=== PATIENT | female | born 1950 | race Caucasian/White ===

== ENCOUNTER → 2016-11-13 | Outpatient (CLI) | payer OTHER ==
[~2016-11-13] MED LIST: ATEN50TA21 PO; ATOR10TA82 PO; CYM/30 PO; GLC/500 PO; HYG25 PO; IBUP-103 PO; LYSI500C2 PO; POTA20TA16 PO; TRAM-10 PO; TRAZ50TA35 PO
[2016-11-13 13:46] VITALS: BP 128/81; PULSE 68; TEMP 36.7; O2SAT 97
--- NOTE | 2016-11-13 16:13 | Radiation Oncology Follow-Up ---
Radiation Oncology Follow-Up Date of Visit Nov 13, 2016. Reason For Visit Annual follow-up Radiation Completion Date IMRT and HDR x 3 for endometrial cancer 05/01/14 Diagnosis (1) Endometrial carcinoma Status: Resolved Onset Date: 10/10/2013 Location: endometrium Histology Subtype: endometrioid Stage: ll Permanent Comment: Postmenopausal vaginal bleeding Status post endometrial biopsy showing atrophic endometrium Persistent bleeding, status post D&C and diagnostic laparoscopic evaluation and salpingectomy on the left 10/10/2013 Finding of adenocarcinoma of endometrium, FIGO grade 1 Status post robotic-assisted total abdominal hysterectomy, bilateral salpingo- oophorectomy showing endometrioid adenocarcinoma PT2c pN0M0 FIGO grade 1 Status post completion of radiation therapy utilizing IMR T, as well as 3 high- dose treatments. Received 5700 cGy, completed 05/01/2014 Last Edited By: Perri Miguel on Oct 30, 2015 11:15 Interim History She's been doing well over this past year. She denies any change in urination or bowel habits. She has not a problems with a vaginal discharge or bleeding. She denies any abdominal pain. She is currently not being followed by gynecology. She has been using the vaginal dilator. She does have some difficulty and notices that this does not insert as far. She occasionally has seen blood on the dilator. This occurs if she tries to insert this further. She does not use the dilator on a regular basis. She does have chronic back pain. She was seen and started on Cymbalta. She feels this is greatly helping her back pain. Allergies Coded Allergies: No Known Allergies (Unverified , 05/31/15) Uncoded Allergies: NKA (Allergy, Unknown, 06/21/15) Home Medications Scheduled Atenolol & Chlorthalidone (Tenoretic 50MG/25MG), 0.5 TAB PO QAM Duloxetine HCl (Cymbalta), 1 CAP PO DAILY Potassium Ext Rel (Klor-Con), 10 MEQ PO QAM Trazodone Hcl (Trazodone), 50 MG PO HS Scheduled PRN Lysine (Lysine), 500 MG PO DAILY PRN for UNDECIDED Tramadol (Ultram), 1 TAB PO BID PRN for Pain Review of Systems Gastrointestinal: Symptoms: Constipation GI Comments: Constipation - manageable at home;Urgency w/BMs; Oral: Symptoms: No Problems Respiratory: Symptoms: WNL Urinary: Symptoms: WNL Comments: Stress incontinence that was present before RT, sl. worse; Skin: Symptoms: No Problems Physical Exam Vital Signs Date Time Temp Pulse Resp B/P Pulse Ox O2 Delivery O2 Flow Rate FiO2 11/13/16 13:46 36.7 68 20 128/81 97 Fatigue: None General Appearance: no apparent distress Eyes: normal inspection, EOMI ENT: normal ENT inspection, hearing grossly normal Respiratory/Chest: lungs clear, no respiratory distress, no accessory muscle use Cardiovascular: regular rate, rhythm, no gallop, no murmur Abdomen: non tender, soft, no organomegaly Genitourinary - Female: Normal external genitalia. Speculum examination reveals vaginal foreshortening. There are no visible lesions of the vagina. There is no discharge or bleeding. Pap smear was taken. Bimanual examination reveals no palpable masses and no tenderness. There is mild telangiectasia. Anal / Rectum: Normal sphincter tone. No rectal masses no rectal bleeding. Extremities: no pedal edema Neurologic/Psychiatric: no motor/sensory deficits, alert, normal mood/affect Skin: warm/dry Assessment & Plan Plan: Patient with notified as to results of her Pap smear. Continue regular follow-up with Dr. Lazo. She is not currently following with gynecology. She was instructed to use the vaginal dilator once a week. I did instruct her on the insertion of the dilator. She has foreshortening and this can only be inserted approximately 7 cm. She'll no longer try to insert this any further than 7 cm. We asked to return to our office in 1 year. She may call if she has any questions or concerns in the interim. Total Time In Follow-Up I spent 25 minutes speaking to the patient and performing examination. I spent 15 minutes reviewing information in completing this note. Copy To Paul Lazo M.D.
--- NOTE | 2016-11-24 10:00 | EDITING REQUIRED CODING QUERY ---
SUPPORTING DIAGNOSIS NEEDED A supporting diagnosis is required for the test/procedure performed on this patient in order for us to be reimbursed by the patient's insurance. Please provide a supporting diagnosis for the following test/procedure listed below next to the test name along with your signature. *If there is no additional diagnosis for this patient that would support the following test/procedure please document that below next to the test/procedure. Test(s)/Procedure(s) that require a supporting diagnosis: * SCREENING PAP SMEAR DIAGNOSIS: * DOS: 11/13/16 Provider Signature: Date: Thank you Deysi Nielsen Health Information Management For questions please call [phone]
--- NOTE | 2016-11-24 10:07 | EDITING REQUIRED CODING QUERY ---
SUPPORTING DIAGNOSIS NEEDED A supporting diagnosis is required for the test/procedure performed on this patient in order for us to be reimbursed by the patient's insurance. Please provide a supporting diagnosis for the following test/procedure listed below next to the test name along with your signature. *If there is no additional diagnosis for this patient that would support the following test/procedure please document that below next to the test/procedure. Test(s)/Procedure(s) that require a supporting diagnosis: * SCREENING PAP SMEAR DIAGNOSIS: C54.1 * DOS: 11/13/16 Provider Signature: ____Perri Miguel PA-C Date: _11/25/2016___ Thank you Deysi Nielsen Health Information Management For questions please call [phone]
== END | disposition home or self-care (01) ==
LOC: C.ONC 13:32
PROVIDERS: ATTEND Physician Assistant Medical
DX: Z08 Encounter for follow-up examination after completed treatment for malignant neoplasm (principal); Z92.3 Personal history of irradiation; Z85.42 Personal history of malignant neoplasm of other parts of uterus; C54.1 Malignant neoplasm of endometrium

== ENCOUNTER → 2017-05-11 | Outpatient (CLI) | payer OTHER ==
[~2017-05-11] MED LIST changes: -ATOR10TA82 PO; -GLC/500 PO; -HYG25 PO; -IBUP-103 PO
[2017-05-11 11:02] LABS: BASO % 0.4 %; BASO ABS # 0.03 K/uL (0-0.2); COMPLETE YES; EOS % 2.3 %; HEMATOCRIT 42.9 % (37-47); IG% 0.1 %; LYMPH % 14.7 %; LYMPH ABS # 1.01 K/uL (1.2-3.4); MEAN CELL VOLUME 92.7 fL (80-100); MEAN CORPUSCULAR HEMOGLOBIN 30.2 pg (25-34); MEAN CORPUSCULAR HGB CONC 32.6 g/dl (32-36); MEAN PLATELET VOLUME 10.5 fL (7.4-10.4); MONO % 8.3 %; NEUT % 74.2 %; PLATELET COUNT 307 K/uL (130-400); RED BLOOD COUNT 4.63 M/uL (4.2-5.4); WHITE BLOOD COUNT 6.89 K/uL (4.8-10.8)
[2017-05-11 11:26] LABS: ESTIMATED AVERAGE GLUCOSE 146 mg/dl; HA1C FLAG Normal (Normal)
[2017-05-11 13:55] LABS: BLOOD UREA NITROGEN 7 mg/dl (7-18); BUN/CREATININE RATIO 9.1 (10-20); CALCIUM 9.2 mg/dl (8.5-10.1); CARBON DIOXIDE 30 mmol/L (21-32); CHLORIDE 100 mmol/L (98-107); CREATININE 0.81 mg/dl (0.60-1.20); GLUCOSE 125 mg/dl (70-99); POTASSIUM 3.7 mmol/L (3.5-5.1); SODIUM 136 mmol/L (136-145)
[2017-05-11 14:05] LABS: ALB/GLOB RATIO 0.7 (0.9-2); ALKALINE PHOSPHATASE 63 U/L (45-117); ALT/SGPT 38 U/L (12-78); AST/SGOT 26 U/L (15-37); CHOLESTEROL 197 mg/dl (0-200); CHOLESTEROL/HDL RATIO 3.5; HDL CHOLESTEROL 57 mg/dl; LDL CHOLESTEROL CALCULATED 115 mg/dl; TRIGLYCERIDES 126 mg/dl (0-150); VERY LOW DENSITY LIPOPROT CALC 25 mg/dl
--- NOTE | 2017-05-21 12:49 | CODING QUERY MEDICAL NECESSITY ---
SUPPORTING DIAGNOSIS NEEDED Dr. Lazo, A supporting diagnosis is required for the test/procedure performed on this patient in order for us to be reimbursed by the patient's insurance. Please provide a supporting diagnosis for the following test/procedure listed below next to the test name along with your signature. *If there is no additional diagnosis for this patient that would support the following test/procedure please document that below next to the test/procedure. Test(s)/Procedure(s) that require a supporting diagnosis: * 28705 GLYCATED HEMOGLOBIN DIAGNOSIS: DATE OF SERVICE: 05/11/17 Provider Signature: Date: Thank you Leonidas Kwan [facility] Information Management Once completed, please kindly fax back to [phone] For questions please call [phone]
== END | disposition home or self-care (01) ==
LOC: C.LABBC 09:15
PROVIDERS: ATTEND Internal Medicine Geriatric Medicine
DX: Z11.59 Encounter for screening for other viral diseases (principal); I10 Essential (primary) hypertension; R35.0 Frequency of micturition; E78.5 Hyperlipidemia, unspecified; M54.6 Pain in thoracic spine; K76.0 Fatty (change of) liver, not elsewhere classified; E11.9 Type 2 diabetes mellitus without complications

== ENCOUNTER → 2017-11-12 | Outpatient (CLI) | payer OTHER ==
[~2017-11-12] MED LIST changes: +ATOR10TA82 PO; +GLC/500 PO; +HYG25 PO; +lexapro
[2017-11-12 14:00] VITALS: BP 120/76; PULSE 68; TEMP 36.7; O2SAT 96
--- NOTE | 2017-11-12 15:54 | Radiation Oncology Follow-Up ---
Radiation Oncology Follow-Up Date of Visit Nov 12, 2017. Reason For Visit Annual follow-up Radiation Completion Date 05/01/14 Diagnosis (1) Endometrial carcinoma Status: Resolved Onset Date: 10/10/2013 Stage: ll Permanent Comment: Postmenopausal vaginal bleeding Status post endometrial biopsy showing atrophic endometrium Persistent bleeding, status post D&C and diagnostic laparoscopic evaluation and salpingectomy on the left 10/10/2013 Finding of adenocarcinoma of endometrium, FIGO grade 1 Status post robotic-assisted total abdominal hysterectomy, bilateral salpingo- oophorectomy showing endometrioid adenocarcinoma PT2c pN0M0 FIGO grade 1 Status post completion of radiation therapy utilizing IMR T, as well as 3 high- dose treatments. Received 5700 cGy, completed 05/01/2014 Last Edited By: Perri Miguel on Oct 30, 2015 11:15 Interim History She has been doing well over this past year. She denies any vaginal discharge or irritation. There is been no change of urination other than she notices an odor to her urine over the past several weeks. She did start on a new vitamin. She has been taking vitamin D. She is also now on a potassium supplement. She is on a blood pressure pill that contains a diuretic. She does not use the vaginal dilator on a regular basis. She is noted an issue with a chronic cough. This is been happening over at least a 6 month time. She does have rhinorrhea and notes the drainage begins when she goes into work. She will cough repeatedly and at times will have incontinence of urine as well as stool. There is no rectal bleeding. Allergies Coded Allergies: No Known Allergies (Unverified , 05/31/15) Home Medications Scheduled Atenolol & Chlorthalidone (Tenoretic 50MG/25MG), 1 TAB PO QAM Duloxetine HCl (Cymbalta), 1 CAP PO DAILY Potassium Ext Rel (Klor-Con), 10 MEQ PO QAM [lexapro], 1 TAB DAILY Review of Systems Gastrointestinal: Symptoms: Constipation, Diarrhea GI Comments: alternates between diarrhea and constipation urgency last BM this AM Oral: Symptoms: No Problems Respiratory: Symptoms: SOB With Exertion, Productive Cough Sputum Character: does not check color Urinary: Symptoms: Frequency Comments: urine odor per patient urgency Skin: Symptoms: No Problems Physical Exam Vital Signs Date Time Temp Pulse Resp B/P (MAP) Pulse Ox O2 Delivery O2 Flow Rate FiO2 11/12/17 14:00 36.7 68 20 120/76 96 Fatigue: None General Appearance: no apparent distress Eyes: normal inspection, EOMI Neck: no adenopathy, thyroid normal Respiratory/Chest: lungs clear, no respiratory distress, no accessory muscle use Cardiovascular: regular rate, rhythm, no gallop, no murmur Abdomen: non tender, soft, no organomegaly Genitourinary - Female: external genitalia normal, + pertinent finding (There is mild foreshortening of the vagina. Mild telangiectasia. There are no visible or palpable masses. There is some laxity in the pelvic floor. Slight cystocele noted with cough. Pap smear was taken.) Anal / Rectum: Normal sphincter tone. No rectal masses and no rectal bleeding. Extremities: no pedal edema Neurologic/Psychiatric: no motor/sensory deficits, alert, normal mood/affect Skin: warm/dry Pain Management Patient Reports Pain: Yes Pain Location: Back Patient Preferred Pain Scale: 0 - 10 Initial Pain Intensity: 9.0 Pain Management Plan She has chronic back pain. This is followed by her primary care physician. She uses Advil and Cymbalta. Laboratory Laboratory Results: were reviewed Laboratory Comments: Test 11/12/17 14:35 Urine Color YELLOW Urine Appearance CLEAR (CLEAR) Urine pH 8.0 (4.5-7.5) Urine Specific [place] 1.019 (1.000-1.030) Urine Protein NEG (NEG) Urine Glucose (UA) NEG (NEG) Urine Ketones NEG (NEG) Urine Occult Blood NEG (NEG) Urine Nitrite NEG (NEG) Urine Bilirubin NEG (NEG) Urine Urobilinogen NEG (NEG) Urine Leukocyte Esterase NEG (NEG) Pathology Pathology Results: not applicable Imaging Imaging Studies: pending Assessment & Plan Plan: Continue regular follow-up with her primary care physician. We discussed that the cough is likely due to postnasal drainage. Zyrtec was recommended. Chest x-ray was ordered. Urinalysis was obtained. The change in the odor of the urine is likely secondary to her new potassium pill. She will be notified as the results of the Pap smear. We asked her to return to our office in 1 year. She may call if she has any questions or concerns in the interim. If she continues to have issues with the cough she will need to follow-up with Dr. Lazo if the Zyrtec does not help. Total Time In Follow-Up I spent 25 minutes speaking to the patient in performing examination. I spent 15 minutes reviewing information and completing this note. Copy To Paul Lazo M.D.
== END | disposition home or self-care (01) ==
LOC: C.ONC 13:53
PROVIDERS: ATTEND Physician Assistant Medical
DX: Z08 Encounter for follow-up examination after completed treatment for malignant neoplasm (principal); Z92.3 Personal history of irradiation; Z85.42 Personal history of malignant neoplasm of other parts of uterus

== ENCOUNTER → 2017-11-12 | Outpatient (CLI) | payer OTHER ==
--- NOTE | 2017-11-12 15:59 | DIAGNOSTIC IMAGING REPORT ---
CHEST 2 VIEWS ROUTINE CLINICAL HISTORY: COUGH,CAENDONETRUIUM dyspnea COMPARISON STUDY: 06/18/2017 FINDINGS: Mild parenchymal infiltrate left base. Lungs otherwise appear clear. Diaphragms are smooth. IMPRESSION: Mild parenchymal infiltrate left base. The above report was generated using voice recognition software. It may contain grammatical, syntax or spelling errors. Electronically signed by: Stuart Boateng M.D. 11/12/2017 3:57 PM Dictated Date/Time: 11/12/2017 3:57 PM
== END | disposition home or self-care (01) ==
LOC: C.RAD 15:19
PROVIDERS: ATTEND Physician Assistant Medical
DX: R05 Cough (principal); C55 Malignant neoplasm of uterus, part unspecified

== ENCOUNTER → 2017-12-28 | Outpatient (CLI) | payer OTHER ==
[~2017-12-28] MED LIST changes: -ATOR10TA82 PO; -GLC/500 PO; -HYG25 PO; -LYSI500C2 PO; +POTA-639 PO; -POTA20TA16 PO; -TRAM-10 PO; -TRAZ50TA35 PO
--- NOTE | 2017-12-28 12:48 | DIAGNOSTIC IMAGING REPORT ---
CHEST 2 VIEWS ROUTINE CLINICAL HISTORY: R05 [id number] COMPARISON STUDY: 11/12/2017 FINDINGS: The cardiac and mediastinal contours are normal. There is no evidence of focal pulmonary consolidation. There is no evidence of failure. No pleural effusions are visualized.[ IMPRESSION: No active disease in the chest. Electronically signed by: Dex Obrien M.D. 12/28/2017 12:46 PM Dictated Date/Time: 12/28/2017 12:46 PM
[2017-12-28 13:03] LABS: BASO % 0.5 %; BASO ABS # 0.03 K/uL (0-0.2); EOS % 2.6 %; EOS ABS # 0.17 K/uL (0-0.5); HEMATOCRIT 39.1 % (37-47); HEMOGLOBIN 13.6 g/dL (12.0-16.0); IG# 0.01 K/uL (0.00-0.02); LYMPH % 16.8 %; LYMPH ABS # 1.11 K/uL (1.2-3.4); MEAN CELL VOLUME 90.5 fL (80-100); MEAN CORPUSCULAR HEMOGLOBIN 31.5 pg (25-34); MEAN CORPUSCULAR HGB CONC 34.8 g/dl (32-36); MEAN PLATELET VOLUME 9.9 fL (7.4-10.4); MONO % 7.6 %; NEUT % 72.3 %; NEUT ABS # 4.79 K/uL (1.4-6.5); PLATELET COUNT 257 K/uL (130-400); RED CELL DISTRIBUTION WIDTH CV 14.1 % (11.5-14.5); RED CELL DISTRIBUTION WIDTH SD 46.9 fL (36.4-46.3); WHITE BLOOD COUNT 6.61 K/uL (4.8-10.8)
[2017-12-28 13:18] LABS: HEMOGLOBIN A1C 6.3 % (4.5-5.6)
[2017-12-28 13:39] LABS: ALBUMIN 3.4 gm/dl (3.4-5.0); BLOOD UREA NITROGEN 8 mg/dl (7-18); CALCIUM 8.7 mg/dl (8.5-10.1); CARBON DIOXIDE 31 mmol/L (21-32); CREATININE 0.84 mg/dl (0.60-1.20); GLUCOSE 99 mg/dl (70-99); POTASSIUM 3.6 mmol/L (3.5-5.1); SODIUM 137 mmol/L (136-145)
[2017-12-28 13:49] LABS: ALKALINE PHOSPHATASE 55 U/L (45-117); ALT/SGPT 35 U/L (12-78); AST/SGOT 24 U/L (15-37); CHOLESTEROL 185 mg/dl (0-200); LDL CHOLESTEROL CALCULATED 108 mg/dl; TOTAL PROTEIN 8.2 gm/dl (6.4-8.2)
== END | disposition home or self-care (01) ==
LOC: C.LABBC 12:02
PROVIDERS: ATTEND Internal Medicine Geriatric Medicine
DX: R05 Cough (principal); I10 Essential (primary) hypertension; R35.0 Frequency of micturition; E11.9 Type 2 diabetes mellitus without complications; E78.5 Hyperlipidemia, unspecified